=== PATIENT | female | born 1950 | race Caucasian/White ===

== ENCOUNTER → 2024-03-18 11:28 | Outpatient (REF) | payer MEDICARE, OTHER, SELFPAY | LOC: RAD 11:28 | PROVIDERS: ATTENDING PHYSICIAN Family Medicine | DX: J40 Bronchitis, not specified as acute or chronic (principal) | CPT/HCPCS: 71046 ==

== ENCOUNTER → 2024-11-08 14:53 | Outpatient (REF) | payer MEDICARE, OTHER, SELFPAY | LOC: WDC 14:53 | PROVIDERS: ATTENDING PHYSICIAN Family Medicine | DX: Z12.31 Encounter for screening mammogram for malignant neoplasm of breast (principal) | CPT/HCPCS: 77063; 77067 ==

== ENCOUNTER 2025-05-02 06:21 | Day surgery (SDC) | payer MEDICARE, OTHER, SELFPAY | END 2025-05-02 14:04 | disposition home or self-care (01) | LOC: GI 06:21 | PROVIDERS: ATTENDING PHYSICIAN Specialist | DX: Z12.11 Encounter for screening for malignant neoplasm of colon (principal); K57.30 Diverticulosis of large intestine without perforation or abscess without bleeding; K51.40 Inflammatory polyps of colon without complications | CPT/HCPCS: 45380; 88305 ==

== ENCOUNTER → 2025-10-15 11:30 | Outpatient (REF) | payer MEDICARE, OTHER, SELFPAY | LOC: HWRAD 11:30 | PROVIDERS: ATTENDING PHYSICIAN Family Medicine | DX: E78.2 Mixed hyperlipidemia (principal); Z78.0 Asymptomatic menopausal state | CPT/HCPCS: 75571; 77080 ==

== ENCOUNTER → 2025-11-11 14:57 | Outpatient (REF) | payer MEDICARE, OTHER, SELFPAY | LOC: WDC 14:57 | PROVIDERS: ATTENDING PHYSICIAN Family Medicine | DX: Z12.31 Encounter for screening mammogram for malignant neoplasm of breast (principal) | CPT/HCPCS: 77063; 77067 ==